=== PATIENT | male | born 1985 | race Caucasian/White ===

== ENCOUNTER 2018-09-27 14:11 | Emergency (ER) | payer MEDICAID, OTHER ==
[~2018-09-27] VITALS: Ht 182.9 cm; Wt 100.0 kg
[2018-09-27 18:05] VITALS: BP 143/71
== END 2018-09-27 18:30 | disposition home or self-care (01) ==
LOC: ER 14:11
DX: R53.1 Weakness (principal)
CPT/HCPCS: 99283